=== PATIENT | male | born 1970 | race Caucasian/White ===

== ENCOUNTER → 2016-12-30 | Outpatient (CLI) | payer OTHER ==
[~2016-12-30] MED LIST: CLC6 PO; CPR500 PO; FLM4 PO; IBUP200C14 PO; OXYC-57 PO
== END | disposition home or self-care (01) ==
LOC: C.LABSPEC 17:02
PROVIDERS: ATTEND Nurse Practitioner Adult Health
DX: N20.1 Calculus of ureter (principal)

== ENCOUNTER 2017-02-22 04:51 | Observation (INO) | payer OTHER ==
[2017-02-21 23:08] VITALS: BP 120/85; PULSE 77; TEMP 36.8; O2SAT 96
[~2017-02-22] VITALS: Ht 177.8 cm; Wt 123.0 kg
[2017-02-22] VITALS (7 sets, daily range): BP systolic 120–133; BP diastolic 81–90; PULSE 72–81; TEMP 36.5–37.1; O2SAT 96–98; Ht 177.8 cm; Wt 123.0 kg
[~2017-02-22 04:51] MED LIST changes: -CLC6 PO; -IBUP200C14 PO
[2017-02-22] MEDS ORDERED: SODIUM CHLORIDE 0.9% 1000ML 1,000 ML IV STA (05:09)
[2017-02-22] MEDS ORDERED: ALUMINUM/MAGNESIUM SUSP 30 ML UDC PO STA (05:09)
[2017-02-22 05:23] LABS: BASO % 0.3 %; BASO ABS # 0.04 K/uL (0-0.2); COMPLETE YES; EOS % 1.5 %; HEMATOCRIT 43.6 % (42-52); IG% 0.3 %; LYMPH % 17.5 %; LYMPH ABS # 2.24 K/uL (1.2-3.4); MEAN CELL VOLUME 80.4 fL (80-100); MEAN CORPUSCULAR HEMOGLOBIN 25.5 pg (25-34); MEAN CORPUSCULAR HGB CONC 31.7 g/dl (32-36); MEAN PLATELET VOLUME 9.5 fL (7.4-10.4); MONO % 10.8 %; NEUT % 69.6 %; PLATELET COUNT 291 K/uL (130-400); RED BLOOD COUNT 5.42 M/uL (4.7-6.1); WHITE BLOOD COUNT 12.82 K/uL (4.8-10.8)
[2017-02-22 05:27] LABS: PROTHROMBIN TIME (PATIENT) 10.3 SECONDS (9.0-12.0)
[2017-02-22 05:34] LABS: BLOOD UREA NITROGEN 15 mg/dl (7-18); GLUCOSE 94 mg/dl (70-99)
[2017-02-22 05:35] LABS: ALT/SGPT 39 U/L (12-78); AST/SGOT 25 U/L (15-37); BUN/CREATININE RATIO 15.3 (10-20); CALCIUM 8.3 mg/dl (8.5-10.1); CARBON DIOXIDE 25 mmol/L (21-32); CHLORIDE 108 mmol/L (98-107); POTASSIUM 3.7 mmol/L (3.5-5.1); SODIUM 141 mmol/L (136-145)
[2017-02-22 05:40] LABS: ALKALINE PHOSPHATASE 93 U/L (45-117); CKMB/CK RATIO 0.8 (0-3.0)
--- NOTE | 2017-02-22 05:53 | EMERGENCY ROOM VISIT NOTE ---
History Report prepared by Christina: Inge Serrano Under the Supervision of: Dr. Gentry Armijo D.O. First contact with patient: 05:01 Chief Complaint: CARDIAC ASSESSMENT Stated Complaint: CHEST PRESSURE,NECK, LIGHTHEADED History of Present Illness The patient is a 46 year old male who presents to the Emergency Room with complaints of persistent chest pressure starting 2300 last night. The pain is across his entire chest and up into his neck and jawline. The pain is also going through to his back. When the pain started, he took some aspirin and found relief. He was able to go to sleep. He woke up at 0415 and felt SOB. He feels like his chest pressure worsens with breathing. He has had chest pressure before, but not this severely. He denies any abdominal pain. He notes some water retention in his legs, but states that he is on his feet a lot at work. He did have some alcohol last night. He denies any tobacco use. He had a stress test before in 2001. He is not on any medications daily. His grandfather had a history of heart problems. Source of History: patient Onset: 2300 Position: chest Quality: pressure Timing: other (persistent) Modifying Factors (Worsening): breathing Associated Symptoms: + SOB, No abdominal pain Review of Systems See HPI for pertinent positives & negatives. A total of 10 systems reviewed and were otherwise negative. Past Medical & Surgical Medical Problems: (1) chest pain (2) No Known Active Medical Problems Family History Heart disease Social History Smoking Status: Never Smoker Marital Status: Occupation Status: employed Current/Historical Medications No Active Prescriptions or Reported Meds Allergies Coded Allergies: Prednisone (Verified Allergy, Severe, HYPERACTIVITY/INSOMNIA FOR DAYS, ) Morphine (Unverified Allergy, Intermediate, N/V, 02/22/11) Physical Exam Vital Signs Date Time Temp Pulse Resp B/P (MAP) Pulse Ox O2 Delivery O2 Flow Rate FiO2 02/22/17 07:38 98 Room Air 02/22/17 07:36 98 Nasal Cannula 2.0 02/22/17 07:35 80 20 131/108 98 Room Air 02/22/17 06:31 80 24 147/91 97 Room Air 02/22/17 05:20 76 02/22/17 05:17 76 02/22/17 04:54 36.5 84 18 136/90 99 Room Air Physical Exam GENERAL: Patient is awake, alert, somewhat anxious appearing and uncomfortable. EYES: The conjunctivae are clear. The pupils are round and reactive. EARS, NOSE, MOUTH AND THROAT: The nose is without any evidence of any deformity. Mucous membranes are moist tongue is midline NECK: The neck is nontender and supple. RESPIRATORY: Normal respiratory effort is noted there is no evidence of wheezing rhonchi or rales CARDIOVASCULAR: Regular rate and rhythm noted there no murmurs rubs or gallops normal S1 normal S2 GASTROINTESTINAL: The abdomen is soft. Bowel sounds are present in all quadrants. Abdomen is nontender MUSCULOSKELETAL/EXTREMITIES: There is no evidence of gross deformity full range of motion is noted in the hips and shoulders SKIN: There is no obvious evidence of any rash. There are no petechiae, pallor or cyanosis noted. NEUROLOGIC: Patient is awake alert and oriented x3 Medical Decision & Procedures ER Provider Diagnostic Interpretation: X-ray results as stated below per interpretation by me. Chest X-ray: Cardiomegaly, no definite infiltrate, no free air, no acute disease. Laboratory Results 02/22/17 05:05 Red Blood Count 5.42, Mean Corpuscular Volume 80.4, Mean Corpuscular Hemoglobin 25.5, Mean Corpuscular Hemoglobin Concent 31.7, Mean Platelet Volume 9.5, Neutrophils (%) (Auto) 69.6, Lymphocytes (%) (Auto) 17.5, Monocytes (%) (Auto) 10.8, Eosinophils (%) (Auto) 1.5, Basophils (%) (Auto) 0.3, Neutrophils # (Auto ) 8.92, Lymphocytes # (Auto) 2.24, Monocytes # (Auto) 1.39, Eosinophils # (Auto ) 0.19, Basophils # (Auto) 0.04 02/22/17 05:05 Test 02/22/17 05:05 White Blood Count 12.82 K/uL (4.8-10.8) Red Blood Count 5.42 M/uL (4.7-6.1) Hemoglobin 13.8 g/dL (14.0-18.0) Hematocrit 43.6 % (42-52) Mean Corpuscular Volume 80.4 fL (80-100) Mean Corpuscular Hemoglobin 25.5 pg (25-34) Mean Corpuscular Hemoglobin Concent 31.7 g/dl (32-36) Platelet Count 291 K/uL (130-400) Mean Platelet Volume 9.5 fL (7.4-10.4) Neutrophils (%) (Auto) 69.6 % Lymphocytes (%) (Auto) 17.5 % Monocytes (%) (Auto) 10.8 % Eosinophils (%) (Auto) 1.5 % Basophils (%) (Auto) 0.3 % Neutrophils # (Auto) 8.92 K/uL (1.4-6.5) Lymphocytes # (Auto) 2.24 K/uL (1.2-3.4) Monocytes # (Auto) 1.39 K/uL (0.11-0.59) Eosinophils # (Auto) 0.19 K/uL (0-0.5) Basophils # (Auto) 0.04 K/uL (0-0.2) RDW Standard Deviation 41.3 fL (36.4-46.3) RDW Coefficient of Variation 13.9 % (11.5-14.5) Immature Granulocyte % (Auto) 0.3 % Immature Granulocyte # (Auto) 0.04 K/uL (0.00-0.02) Erythrocyte Sedimentation Rate 20 mm/hr (0-14) Prothrombin Time 10.3 SECONDS (9.0-12.0) Prothromb Time International Ratio 1.0 (0.9-1.1) Activated Partial Thromboplast Time 26.8 SECONDS (21.0-31.0) Partial Thromboplastin Ratio 1.0 D-Dimer 210 ug/L FEU (0-500) Anion Gap 8.0 mmol/L (3-11) Est Creatinine Clear Calc Drug Dose 122.9 ml/min Estimated GFR () 104.9 Estimated GFR (Non- 90.5 BUN/Creatinine Ratio 15.3 (10-20) Calcium Level 8.3 mg/dl (8.5-10.1) Total Bilirubin 0.3 mg/dl (0.2-1) Direct Bilirubin < 0.1 mg/dl (0-0.2) Aspartate Amino Transf (AST/SGOT) 25 U/L (15-37) Alanine Aminotransferase (ALT/SGPT) 39 U/L (12-78) Alkaline Phosphatase 93 U/L (45-117) C-Reactive Protein < 0.29 mg/dl (0-0.29) Total Protein 7.3 gm/dl (6.4-8.2) Albumin 3.7 gm/dl (3.4-5.0) Lipase 131 U/L (73-393) Laboratory results per my review. Medications Administered Medications (Trade) Dose Ordered Sig/Nikko Route Start Time Stop Time Status Last Admin Dose Admin Al Hydroxide/Mg Hydroxide (Maalox Susp) 30 ml NOW STAT PO 02/22/17 05:09 02/22/17 05:10 DC 02/22/17 05:16 30 ML Sodium Chloride 1,000 ml @ 999 mls/hr Q1H1M STAT IV 02/22/17 05:09 02/22/17 06:09 DC 02/22/17 05:17 999 MLS/HR Oxycodone HCl (Roxicodone Immediate Rel Tab) 5 mg NOW STAT PO 02/22/17 07:48 02/22/17 07:49 DC 02/22/17 07:55 5 MG ECG Indication: chest pain, SOB/dyspnea Rate (beats per minute): 76 Rhythm: normal sinus Findings: no ectopy, other (no acute ST segment abnormality) Comparison ECG Date: 09-May-2002 Change: no significant change ED Course 0504: The patient was evaluated in room A2. A complete history and physical examination were performed. 0509: NSS 1000 ml @ 999 mls/hr IV, Maalox Susp 30 ml PO. 0625: Upon reevaluation, the patient is resting comfortably. I discussed results and treatment plan with him. He verbalizes agreement and understanding. The patient will be evaluated for further management and care. 0645: I discussed the patient's case with Dr. Watters, [facility] hospitalist. The patient will be evaluated for further management. Medical Decision Prior records/ancillary studies reviewed. Triage Nursing notes reviewed. The patient's history was concerning for chest pain. Differential diagnosis: Etiologies such as cardiac ischemia, aortic dissection, pulmonary embolism, pneumonia, pneumothorax, musculoskeletal, infections, pericarditis, myocarditis , esophageal rupture, gastrointestinal, as well as others were entertained. Medication Reconciliation: I attest that I have personally reviewed the patient' s current medications list. Patient was found to have a slightly elevated blood pressure due to circumstances. I do not believe that the patient requires hypertension monitoring. The patient is a 46-year-old male who presented to the emergency department for evaluation of right-sided chest pain. The patient describes a pressure which is on the right side of his chest as well as substernally. He states that this is worsened with exertion but also increases with deep inspiration. The pain radiates to the right side of the neck. He does have a family history of coronary artery disease. I discussed patient's laboratory and radiographic studies with him. I also discussed the limitations of the emergency department workup with him. Given the patient's exertional component I do feel this could represent an acute coronary syndrome. I discussed this case with the on-call [facility] hospitalist group. They've agreed to evaluate the patient in the emergency department for further management and disposition. Consults Time Called: 0640 Consulting Physician: Dr. Watters, [facility]ist Returned Call: [phone] I discussed the patient's case with her. The patient will be evaluated for further management. Impression Primary Impression: Exertional chest pain Additional Impression: Pleurisy Scribe Attestation The scribe's documentation has been prepared under my direction and personally reviewed by me in its entirety. I confirm that the note above accurately reflects all work, treatment, procedures, and medical decision making performed by me. Departure Information Dispostion Being Evaluated By Hospitalist Prescriptions No Active Prescriptions or Reported Meds Referrals Yaya Berger III, M.D. (PCP) Patient Instructions [facility] Problem Qualifiers
--- NOTE | 2017-02-22 06:37 | DIAGNOSTIC IMAGING REPORT ---
CHEST ONE VIEW PORTABLE CLINICAL HISTORY: CP dyspnea COMPARISON STUDY: No previous studies for comparison. FINDINGS: Mild cardia megaly. Lungs are clear. Diaphragms are smooth. No focal infiltrate. IMPRESSION: Mild cardia megaly. Otherwise negative study The above report was generated using voice recognition software. It may contain grammatical, syntax or spelling errors. Electronically signed by: Timo Mendoza M.D. 02/22/2017 6:36 AM Dictated Date/Time: 02/22/2017 6:36 AM
[2017-02-22] MEDS ORDERED: OXYCODONE HCL IR 5 MG TAB (IMMEDIATE RELEASE) PO STA (07:48)
[2017-02-22] MEDS ORDERED: NITROGLYCERIN 0.4 MG SL PER TAB CHARGE ONE (08:11)
[2017-02-22] MEDS ORDERED: NITROGLYCERIN 0.4 MG SL PER TAB CHARGE SL PRN (08:30)
[2017-02-22] MEDS ORDERED: NURSING VERBAL MED ORDER ONE (08:30)
[2017-02-22] MEDS ORDERED: ONDANSETRON INJ 2 MG/ML 2 ML VIAL IV PRN (08:30)
[2017-02-22] MEDS ORDERED: ACETAMINOPHEN 325 MG TAB PO PRN (08:30)
[2017-02-22] MEDS ORDERED: HYDROmorphone INJ 0.5 MG/0.5 ML SYR ONE (08:37)
[2017-02-22] MEDS ORDERED: OPTIRAY 320 IV PRN (08:45)
[2017-02-22] MEDS ORDERED: HYDROmorphone INJ 0.5 MG/0.5 ML SYR IV PRN (08:45)
--- NOTE | 2017-02-22 08:52 | History and Physical ---
History & Physical Date & Time of Service: Feb 22, 2017 at 08:36 Chief Complaint: Chest Pressure,Neck, Lightheaded Primary Care Physician: Yaya Berger III, M.D. History of Present Illness Source: patient, spouse, clinic records, hospital records 46 year old male with history of kidney stones presenting with sudden onset chest discomfort starting last evening. Patient follows with Dr. Berger for Primary Care. Patient was at his usual state of health until last evening, around 11 pm, while sitting in the car on the way home from [place], when he suddenly experienced anterior chest discomfort, associated with shortness of breath, radiating to the neck l>r, and mid-back, worse with deep inspiration. When he got home, patient took four tablets of baby Aspirin which relieved the symptoms. He then fell asleep. At around 4 am, patient was awakened by the same symptoms. He then went to the ER for evaluation. At the ER, BP 136/90 HR 84, o2 sats 97%. He was given IV fluids, Oxycodone, Maalox, which did not relieve his symptoms. EKG showed non specific t wave inversions in the inferior leads and v1. Cardiac markers negative. D dimer negative. CXR possible cardiomegaly On my exam, patient was seen with his at bedside. Awake, alert, oriented x 3, in mild discomfort but pleasant, not in respiratory distress. Still has 4-5/10 anterior chest discomfort, worse with deep inspiration. No active nausea/vomiting, dizziness, palpitations, diaphoresis. Denies recent illness, fever/chills, cough, sputum, abdominal pain. Family History Heart disease Social History Smoking Status: Never Smoker Smokeless Tobacco Use: No Alcohol Use: 4x/week 1-2 beers Drug Use: none Marital Status: Housing status: lives with family Occupational Status: employed Immunizations History of Influenza Vaccine: Yes Influenza Vaccine Date: Sep 11, 2009 History of Tetanus Vaccine?: Yes Tetanus Immunization Date: Jun 11, 2008 History of Pneumococcal: Yes Pneumococcal Date: Oct 09, 2006 History of Hepatitis B Vaccine: Yes Hepatitis Immunization Date: Jun 11, 2008 Multi-Drug Resistant Organisms History of MDRO: No Allergies Coded Allergies: Prednisone (Verified Allergy, Severe, HYPERACTIVITY/INSOMNIA FOR DAYS, ) Morphine (Unverified Allergy, Intermediate, N/V, 02/22/11) Home Medications No Active Prescriptions or Reported Meds Review of Systems Constitutional- no fever; no weight loss Eyes- no acute visual changes ENT- no sinus drainage; no pharyngitis Pulmonary- (+) as noted above Cardiac- (+) as noted above GI- no nausea, no vomiting, no diarrhea, no melena, no hematochezia - no dysuria, no hematuria Musculoskeletal- no arthralgias, no myalgias Derm- no rashes, no new skin lesions, no changing skin lesions Hematologic- no unusual bruising, no unusual bleeding Lymphatics- no adenopathy Endocrine- no polyuria or polydipsia; no heat or cold intolerance Neuro- no headaches, no focal neurologic symptoms Psych- no anxiety, no depression Physical Exam Vital Signs Date Time Temp Pulse Resp B/P (MAP) Pulse Ox O2 Delivery O2 Flow Rate FiO2 02/22/17 08:20 73 20 134/90 96 Nasal Cannula 2.0 02/22/17 08:12 74 22 148/95 98 Nasal Cannula 2.0 02/22/17 07:38 98 Room Air 02/22/17 07:36 98 Nasal Cannula 2.0 02/22/17 07:35 80 20 131/108 98 Room Air 02/22/17 06:31 80 24 147/91 97 Room Air 02/22/17 05:20 76 02/22/17 05:17 76 02/22/17 04:54 36.5 84 18 136/90 99 Room Air General Appearance: WD/WN, no apparent distress Head: normocephalic, atraumatic Eyes: normal inspection, EOMI, sclerae normal ENT: normal ENT inspection, hearing grossly normal, pharynx normal Neck: supple, no adenopathy, thyroid normal, no JVD, trachea midline Respiratory/Chest: lungs clear, normal breath sounds, no respiratory distress, no accessory muscle use, + pertinent finding (mild tenderness on the chest wall) Cardiovascular: regular rate, rhythm, no edema, no JVD, no murmur Abdomen/GI: normal bowel sounds, non tender, soft, no organomegaly Back: normal inspection, no CVA tenderness Extremities/Musculoskelatal: normal inspection, no calf tenderness, no pedal edema, normal range of motion Neurologic/Psych: credit operations processor II-XII nml as tested, no motor/sensory deficits, alert, normal mood/affect, oriented x 3 Skin: normal color, warm/dry, no rash Lymphatic: no adenopathy Diagnostics Laboratory Results Results Past 24 Hours Test 02/22/17 05:05 02/22/17 07:50 Range/Units White Blood Count 12.82 4.8-10.8 K/uL Red Blood Count 5.42 4.7-6.1 M/uL Hemoglobin 13.8 14.0-18.0 g/dL Hematocrit 43.6 42-52 % Mean Corpuscular Volume 80.4 80-100 fL Mean Corpuscular Hemoglobin 25.5 25-34 pg Mean Corpuscular Hemoglobin Concent 31.7 32-36 g/dl Platelet Count 291 130-400 K/uL Mean Platelet Volume 9.5 7.4-10.4 fL Neutrophils (%) (Auto) 69.6 % Lymphocytes (%) (Auto) 17.5 % Monocytes (%) (Auto) 10.8 % Eosinophils (%) (Auto) 1.5 % Basophils (%) (Auto) 0.3 % Neutrophils # (Auto) 8.92 1.4-6.5 K/uL Lymphocytes # (Auto) 2.24 1.2-3.4 K/uL Monocytes # (Auto) 1.39 0.11-0.59 K/uL Eosinophils # (Auto) 0.19 0-0.5 K/uL Basophils # (Auto) 0.04 0-0.2 K/uL RDW Standard Deviation 41.3 36.4-46.3 fL RDW Coefficient of Variation 13.9 11.5-14.5 % Immature Granulocyte % (Auto) 0.3 % Immature Granulocyte # (Auto) 0.04 0.00-0.02 K/uL Prothrombin Time 10.3 9.0-12.0 SECONDS Prothromb Time International Ratio 1.0 0.9-1.1 Activated Partial Thromboplast Time 26.8 21.0-31.0 SECONDS Partial Thromboplastin Ratio 1.0 D-Dimer 210 0-500 ug/L FEU Sodium Level 141 136-145 mmol/L Potassium Level 3.7 3.5-5.1 mmol/L Chloride Level 108 98-107 mmol/L Carbon Dioxide Level 25 21-32 mmol/L Anion Gap 8.0 3-11 mmol/L Blood Urea Nitrogen 15 7-18 mg/dl Creatinine 1.00 0.60-1.40 mg/dl Est Creatinine Clear Calc Drug Dose 122.9 ml/min Estimated GFR () 104.9 Estimated GFR (Non- 90.5 BUN/Creatinine Ratio 15.3 10-20 Random Glucose 94 70-99 mg/dl Calcium Level 8.3 8.5-10.1 mg/dl Total Bilirubin 0.3 0.2-1 mg/dl Direct Bilirubin < 0.1 0-0.2 mg/dl Aspartate Amino Transf (AST/SGOT) 25 15-37 U/L Alanine Aminotransferase (ALT/SGPT) 39 12-78 U/L Alkaline Phosphatase 93 45-117 U/L Total Creatine Kinase 405 39-308 U/L Creatine Kinase MB 3.4 0.5-3.6 ng/ml Creatine Kinase MB Ratio 0.8 0-3.0 Troponin I < 0.015 < 0.015 0-0.045 ng/ml Total Protein 7.3 6.4-8.2 gm/dl Albumin 3.7 3.4-5.0 gm/dl Lipase 131 73-393 U/L Diagnostic Radiology CHEST ONE VIEW PORTABLE CLINICAL HISTORY: CP dyspnea COMPARISON STUDY: No previous studies for comparison. FINDINGS: Mild cardia megaly. Lungs are clear. Diaphragms are smooth. No focal infiltrate. IMPRESSION: Mild cardia megaly. Otherwise negative study EKG HR 70, sinus rhythm, non specific t wave depressions in the inferior leads Impression Assessment and Plan 46 year old male with history of kidney stones presenting with sudden onset chest discomfort starting last evening. CHEST PAIN R/O ACS already took Aspirin 81mg po x 4 tabs at 11pm check serial cardiac markers echo did not resolve with Nitrostat x 2, BP now at systolic 112 from 140s, will hold off on nitro Cardiology consulted R/O PERICARDITIS check ESR, CRP Echo may need high dose Aspirin + Colchicine prn Dilaudid for now R/O DISSECTION, PE D dimer normal but patient presents with symptoms suggestive of above check CT Angio ALCOHOL USE drink 1-2 beer/ 4x a week last drink last night Protonix daily may need Gabapentin protocol, Alcohol Withdrawal protocol DVT prophylaxis SCDs for now til dissection ruled out FULL CODE Dispo pending anticipate d/c home when medically stable Advanced Directives Existing Living Will: No Existing Power of Channel Man: No VTE Prophylaxis VTE Risk Assessment Done? Y/N: Yes Risk Level: Moderate Given or contraindicated: SCD's
--- NOTE | 2017-02-22 09:36 | DIAGNOSTIC IMAGING REPORT ---
Study: CT chest angiogram HISTORY:: Chest pain FINDINGS: The thoracic aorta is normal in course and caliber. Pulmonary vasculature enhances appropriately. The lungs are considered clear. IMPRESSION: Negative study Electronically signed by: Timo Mendoza M.D. 02/22/2017 9:34 AM Dictated Date/Time: 02/22/2017 9:30 AM
[2017-02-22] MEDS ORDERED: PANTOprazole INJ 40 MG in SYRINGE 0 ML IV ONE (10:30)
[2017-02-22] MEDS: SODIUM CHLORIDE 0.9% 1000ML 1,000 ML IV SCH ×2 (11:26→20:06)
[2017-02-22 11:46] LABS: CKMB/CK RATIO 0.9 (0-3.0)
[2017-02-22] MEDS ORDERED: IV FLUIDS COMPLETED PRN (13:30)
--- NOTE | 2017-02-22 14:00 | ECHOCARDIOGRAM REPORT ---
*NOTICE TO RECEIVING REPUBLICAN AGENCY This information is strictly Confidential and protected under [place] law. [place] law prohibits you from making any further disclosure of this information unless further disclosure is expressly permitted by the written consent of the person to whom it pertains or is authorized by law. A general authorization for the release of medical or other information is not sufficient for this purpose. Hospital accepts no responsibility if the information is made available to any other person, INCLUDING THE PATIENT. Interpretation Summary * Name: KATTY BAJWA Study Date: 02/22/2017 10:28 AM BP: 112/73 mmHg * Patient Location: C.2E\S\E208\S\1 HR: 75 * : 1970 (M/d/yyyy) Gender: Male Height: 70 in * Age: 46 yrs Ethnicity: CA Weight: 271 lb * Ordering Physician: Dave Chávez * Referring Physician: Self, Referred * Performed By: Jenifer Pepe RDCS * * Reason For Study: Chest pain * BSA: 2.4 m2 * The study was technically adequate. * There is no comparison study available. * -- Conclusions -- * Left ventricular systolic function is normal. * Ejection Fraction = 60-65%. * The left ventricular wall motion is normal. * Pulse wave TDI of the anterior and posterior mitral annulas demonstrates normal LV relaxation * The right ventricle is normal size. * The right ventricular systolic function is normal as assessed by tricuspid annular plane systolic excursion (TAPSE) (normal >1.5 cm). * There is no pericardial effusion. * No significant valvular pathology. Procedure Details * A complete two-dimensional transthoracic echocardiogram was performed (2D, M-mode, Doppler and color flow Doppler). Left Ventricle * The left ventricle is normal in size. * There is no thrombus. * There is normal left ventricular wall thickness. * Ejection Fraction = 60-65%. * Left ventricular systolic function is normal. * The left ventricular wall motion is normal. Right Ventricle * The right ventricle is normal size. * The right ventricular systolic function is normal as assessed by tricuspid annular plane systolic excursion (TAPSE) (normal >1.5 cm). Atria * The left atrial size is normal. * Right atrial size is normal. * There is no evidence of atrial septal defect, but resolution does not allow assessment for a patent foramen ovale. Mitral Valve * The mitral valve is normal. * There is no mitral valve stenosis. * Significant mitral regurgitation is absent. Tricuspid Valve * The tricuspid valve is normal. * There is no tricuspid stenosis. * There is trace tricuspid regurgitation. Aortic Valve * The aortic valve is trileaflet. * The aortic valve opens well. * Aortic stenosis is absent. * There is no significant aortic regurgitation. Pulmonic Valve * The pulmonary valve is not well seen, but the Doppler examination is normal without significant regurgitation or stenosis. Great Vessels * The aortic root and proximal ascending aorta are normal sized. Pericardium/Pleural * There is no pericardial effusion. Great Vessels * Normal inferior vena cava diameter and respiratory variation suggests normal central venous pressure. Left Ventricular Diastolic Function * Pulse wave TDI of the anterior and posterior mitral annulas demonstrates normal LV relaxation MMode 2D Measurements and Calculations IVSd 0.94 cm LVIDd 4.5 cm LVIDs 2.9 cm LVPWd 1.0 cm IVS/LVPW 0.92 FS 35.2 % EDV(Teich) 93.2 ml ESV(Teich) 32.9 ml EF(Teich) 64.7 % EDV(cubed) 92.1 ml ESV(cubed) 25.1 ml EF(cubed) 72.8 % LV mass(C)d 149.1 grams LV mass(C)dI 62.8 grams/m\S\2 SV(Teich) 60.3 ml SI(Teich) 25.4 ml/m\S\2 SV(cubed) 67.1 ml SI(cubed) 28.2 ml/m\S\2 Ao root diam 3.3 cm Ao root area 8.7 cm\S\2 ACS 2.2 cm LA dimension 3.4 cm asc Aorta Diam 3.7 cm LA/Ao 1.0 LVOT diam 2.0 cm LVOT area 3.1 cm\S\2 LVAd ap4 33.5 cm\S\2 LVLd ap4 8.0 cm EDV(MOD-sp4) 116.2 ml EDV(sp4-el) 119.2 ml LVAs ap4 17.7 cm\S\2 LVLs ap4 6.0 cm ESV(MOD-sp4) 45.6 ml ESV(sp4-el) 44.5 ml EF(MOD-sp4) 60.8 % EF(sp4-el) 62.7 % LVAd ap2 26.8 cm\S\2 LVLd ap2 8.0 cm EDV(MOD-sp2) 74.4 ml EDV(sp2-el) 75.9 ml LVAs ap2 15.4 cm\S\2 LVLs ap2 7.0 cm ESV(MOD-sp2) 28.8 ml ESV(sp2-el) 29.0 ml EF(MOD-sp2) 61.3 % EF(sp2-el) 61.8 % LVLd %diff 0.21 % EDV(MOD-bp) 92.8 ml LVLs %diff 13.7 % ESV(MOD-bp) 38.9 ml EF(MOD-bp) 58.0 % SV(MOD-sp4) 70.7 ml SI(MOD-sp4) 29.7 ml/m\S\2 SV(MOD-sp2) 45.7 ml SI(MOD-sp2) 19.2 ml/m\S\2 SV(MOD-bp) 53.9 ml SI(MOD-bp) 22.7 ml/m\S\2 SV(sp4-el) 74.7 ml SI(sp4-el) 31.4 ml/m\S\2 SV(sp2-el) 46.9 ml SI(sp2-el) 19.8 ml/m\S\2 Doppler Measurements and Calculations MV E max sammie 79.1 cm/sec MV A max sammie 69.4 cm/sec MV E/A 1.1 MV dec time 0.17 sec Ao V2 max 125.1 cm/sec Ao max PG 6.3 mmHg Ao max PG (full) 0.84 mmHg TEE(V,A) 2.9 cm\S\2 ETE(V,D) 2.9 cm\S\2 LV V1 max PG 5.4 mmHg LV V1 max 116.4 cm/sec PA V2 max 108.6 cm/sec PA max PG 4.7 mmHg PA acc slope 392.1 cm/sec\S\2 PA acc time 0.14 sec PA pr(Accel) 17.2 mmHg
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
[2017-02-22] MEDS: KETOROLAC TROMETHAMINE 30 MG/ML VIAL IV PRN ×2 (14:47→20:55)
[2017-02-22 17:44] LABS: CKMB/CK RATIO 0.6 (0-3.0)
[2017-02-22] MEDS: COLCHICINE 0.6 MG TAB PO SCH (19:21)
[2017-02-23] VITALS (8 sets, daily range): BP systolic 138–144; BP diastolic 91–95; PULSE 77–85; TEMP 36.7; O2SAT 95–97
[2017-02-23 07:41] LABS: BASO % 0.6 %; BASO ABS # 0.04 K/uL (0-0.2); COMPLETE YES; EOS % 2.4 %; HEMATOCRIT 38.1 % (42-52); IG% 0.2 %; LYMPH % 26.4 %; LYMPH ABS # 1.65 K/uL (1.2-3.4); MEAN CELL VOLUME 80.5 fL (80-100); MEAN CORPUSCULAR HEMOGLOBIN 26.8 pg (25-34); MEAN CORPUSCULAR HGB CONC 33.3 g/dl (32-36); MEAN PLATELET VOLUME 9.6 fL (7.4-10.4); MONO % 8.3 %; NEUT % 62.1 %; PLATELET COUNT 236 K/uL (130-400); RED BLOOD COUNT 4.73 M/uL (4.7-6.1); WHITE BLOOD COUNT 6.26 K/uL (4.8-10.8)
[2017-02-23 08:06] LABS: BUN/CREATININE RATIO 13.5 (10-20); CREATININE 0.83 mg/dl (0.60-1.40); POTASSIUM 3.8 mmol/L (3.5-5.1)
[2017-02-23] MEDS: COLCHICINE 0.6 MG TAB PO SCH (08:30)
[2017-02-23] MEDS: KETOROLAC TROMETHAMINE 30 MG/ML VIAL IV PRN (08:30)
[2017-02-23] MEDS: SODIUM CHLORIDE 0.9% 1000ML 1,000 ML IV SCH (08:30)
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
[2017-02-23] MEDS ORDERED: PANTOprazole INJ 40 MG in SYRINGE 0 ML IV SCH (11:00)
--- NOTE | 2017-02-23 11:44 | Progress Note ---
Medicine Progress Note Date & Time of Visit: Feb 23, 2017 at 11:35. Subjective patient seen resting in bed, comfortable states he feels much better today chest pain is minimal , can take deep breaths now no cough, sputum, fever, headache, dizziness, nausea, abdominal pain no other symptoms states he is ready and would like to be discharged today Objective Last 8 Hrs Date Time Temp Pulse Resp B/P (MAP) Pulse Ox O2 Delivery O2 Flow Rate FiO2 02/23/17 08:00 97 Room Air 02/23/17 06:56 36.7 85 18 144/91 (108) 97 Room Air 02/23/17 04:05 96 Room Air 02/23/17 03:40 36.7 77 16 138/91 (107) 97 Room Air Physical Exam: General- oriented x 3, not in distress, speaks in sentences with no effort Head- atraumatic Eyes- EOMI, anicteric Neck- supple, no JVD, no adenopathy Lungs- clear breath sounds bilaterally, no rales/wheezes Heart- regular rhythm; no murmur, normal rate Abdomen- normal bowel sounds, soft, nontender Extremities- no pretibial edema, no calf tenderness Neuro- alert, oriented x 3; no gross focal deficits Skin- warm & dry Laboratory Results: Last 24 Hours Test 02/22/17 16:53 02/23/17 07:21 Total Creatine Kinase 333 U/L Creatine Kinase MB 2.0 ng/ml Creatine Kinase MB Ratio 0.6 Troponin I < 0.015 ng/ml White Blood Count 6.26 K/uL Red Blood Count 4.73 M/uL Hemoglobin 12.7 g/dL Hematocrit 38.1 % Mean Corpuscular Volume 80.5 fL Mean Corpuscular Hemoglobin 26.8 pg Mean Corpuscular Hemoglobin Concent 33.3 g/dl Platelet Count 236 K/uL Mean Platelet Volume 9.6 fL Neutrophils (%) (Auto) 62.1 % Lymphocytes (%) (Auto) 26.4 % Monocytes (%) (Auto) 8.3 % Eosinophils (%) (Auto) 2.4 % Basophils (%) (Auto) 0.6 % Neutrophils # (Auto) 3.89 K/uL Lymphocytes # (Auto) 1.65 K/uL Monocytes # (Auto) 0.52 K/uL Eosinophils # (Auto) 0.15 K/uL Basophils # (Auto) 0.04 K/uL RDW Standard Deviation 39.9 fL RDW Coefficient of Variation 13.4 % Immature Granulocyte % (Auto) 0.2 % Immature Granulocyte # (Auto) 0.01 K/uL Sodium Level 140 mmol/L Potassium Level 3.8 mmol/L Chloride Level 108 mmol/L Carbon Dioxide Level 25 mmol/L Anion Gap 7.0 mmol/L Blood Urea Nitrogen 11 mg/dl Creatinine 0.83 mg/dl Est Creatinine Clear Calc Drug Dose 147.8 ml/min Estimated GFR () 123.2 Estimated GFR (Non- 106.3 BUN/Creatinine Ratio 13.5 Random Glucose 89 mg/dl Calcium Level 8.0 mg/dl Assessment & Plan 46 year old male with history of kidney stones presenting with sudden onset chest discomfort starting last evening. CHEST PAIN, LIKELY PLEURISY -- Ct Chest: no dissection, lungs clear D dimer negative -- improved immediately with Toradol IV and Colchicine -- discharge on Ibuprofen 600-800mg TID, Colchicine 0.6mg BID x at least 2 weeks, extend to complete 4 weeks as needed -- ff up with PCP this week POSSIBLE PERICARDITIS? -- ESR 20, CRP negative -- Echo: no pericardial effusion -- no definitive evidence for pericarditis -- will be on ibuprofen and colchicine ACUTE CORONARY SYNDROME RULED OUT -- cardiac markers negative EKG non specific t wave changes in inferior leads -- echo: unrevealing -- evaluated by [facility] Dr. Mclaughlin no further interventions at this time ALCOHOL USE drink 1-2 beer/ 4x a week no signs of withdrawal Dispo d/c home ff up with PCP this week Current Inpatient Medications: Current Inpatient Medications Medications (Trade) Dose Ordered Sig/Nikko Route Start Time Stop Time Status Last Admin Dose Admin Sodium Chloride 1,000 ml @ 125 mls/hr Q8H IV 02/22/17 08:24 03/24/17 08:23 02/23/17 08:30 125 MLS/HR Acetaminophen (Tylenol Tab) 650 mg Q4H PRN PO 02/22/17 08:30 03/24/17 08:29 Ondansetron HCl (Zofran Inj) 4 mg Q6H PRN IV 02/22/17 08:30 03/24/17 08:29 Nitroglycerin (Nitrostat Tab) 0.4 mg UD PRN SL 02/22/17 08:30 03/24/17 08:29 Hydromorphone HCl (Dilaudid Inj) 0.5 mg Q4H PRN IV 02/22/17 08:45 03/08/17 08:44 Ioversol (Optiray 320) 111 ml UD PRN IV 02/22/17 08:45 02/26/17 08:44 Pantoprazole Sodium 40 mg/ Syringe 10 ml @ 5 mls/min DAILY@11 IV 02/23/17 11:00 03/25/17 10:59 02/23/17 11:00 5 MLS/MIN Miscellaneous (Iv Fluids Completed) 1 ea PRN PRN N/A 02/22/17 13:30 02/22/18 13:29 Ketorolac Tromethamine (Toradol Inj) 30 mg Q6H PRN IV 02/22/17 14:30 02/27/17 14:29 02/23/17 08:30 30 MG Colchicine (Colchicine Tab) 0.6 mg BID PO 02/22/17 21:00 03/24/17 20:59 02/23/17 08:30 0.6 MG
[2017-02-23] MEDS ORDERED: IBUP200C14 PO ×2 (11:48→11:49)
[2017-02-23] MEDS ORDERED: CLC6 PO (11:48)
--- NOTE | 2017-02-23 11:56 | Discharge Instructions ---
Discharge Instructions Date of Service Feb 23, 2017. Admission Reason for Admission: Chest Pain Discharge Discharge Diagnosis / Problem: Chest pain, likely Pleurisy Discharge Goals Goal(s): Diagnostic testing, Therapeutic intervention Activity Recommendations Activity Limitations: as noted below (No heavy exertion until re-evaluated by Primary Care Physician) Lifting Limitations: until after follow-up appointment Exercise/Sports Limitations: until after follow-up appointment . Instructions / Follow-Up Instructions / Follow-Up PLEASE REVIEW YOUR MEDICATION LIST AND FOLLOW INSTRUCTIONS CAREFULLY. TAKE COLCHICINE FOR 2 WEEKS. DISCUSS WITH YOUR PRIMARY CARE PHYSICIAN IF YOU NEED TO TAKE IT LONGER THAN THAT. AVOID GRAPEJUICE WHILE TAKING COLCHICINE. ALWAYS TAKE IBUPROFEN WITH FOOD. CALL YOUR PRIMARY CARE PHYSICIAN OR RETURN TO ER IMMEDIATELY IF WITH INCREASING CHEST PAIN, SHORTNESS OF BREATH, COUGH, SPUTUM PRODUCTIONS, FEVER/CHILLS. FOLLOW UP WITH DR. PAPLE (ASSOCIATE OF DR. KOCH) ON SATURDAY FEBRUARY 25, 2017 AT 11:05AM. Current Hospital Diet Patient's current hospital diet: AHA Diet (Heart Healthy) Discharge Diet Recommended Diet: AHA Diet (Heart Healthy) Pending Studies Studies pending at discharge: no Medical Emergencies . Who to Call and When: Medical Emergencies: If at any time you feel your situation is an emergency, please call 911 immediately. . Non-Emergent Contact Non-Emergency issues call your: Primary Care Provider Call Non-Emergent contact if: you have a fever, your pain is not controlled, your pain is worsening, you have any medication questions . . "Provider Documentation" section prepared by Dave Chávez. . VTE Core Measure Inpt VTE Proph given/why not?: SCD's
--- NOTE | 2017-02-23 12:03 | Discharge Summary ---
Discharge Summary Date of Service Feb 23, 2017. Discharge Summary Admission Date: Feb 22, 2017 at 07:53 Discharge Date: Feb 23, 2017 Principal Diagnosis: CHEST PAIN, LIKELY PLEURISY Secondary Diagnoses/Problems: Please refer to hospital course below for further details. Procedures: Study: CT chest angiogram HISTORY:: Chest pain FINDINGS: The thoracic aorta is normal in course and caliber. Pulmonary vasculature enhances appropriately. The lungs are considered clear. IMPRESSION: Negative study CHEST ONE VIEW PORTABLE CLINICAL HISTORY: CP dyspnea COMPARISON STUDY: No previous studies for comparison. FINDINGS: Mild cardia megaly. Lungs are clear. Diaphragms are smooth. No focal infiltrate. IMPRESSION: Mild cardia megaly. Otherwise negative study Echo: -- Conclusions -- * Left ventricular systolic function is normal. * Ejection Fraction = 60-65%. * The left ventricular wall motion is normal. * Pulse wave TDI of the anterior and posterior mitral annulas demonstrates normal LV relaxation * The right ventricle is normal size. * The right ventricular systolic function is normal as assessed by tricuspid annular plane systolic excursion (TAPSE) (normal >1.5 cm). * There is no pericardial effusion. * No significant valvular pathology. Consultations: Copier Technician Dr. Mclaughlin Pending Studies/Follow-Up: Please refer to hospital course below. Medication Reconciliation New Medications: Ibuprofen (Advil) 200 Mg Cap 3-4 TABS PO UD PRN for Pain for 14 Days take 3-4 tabs every 6 hours up to three times a day as needed for pain; always take with food Colchicine (Colcrys) 0.6 Mg Tab 0.6 MG PO BID for 14 Days, #28 TAB 2 Refills Admission Information HPI (per Admitting provider): 46 year old male with history of kidney stones presenting with sudden onset chest discomfort starting last evening. Patient follows with Dr. Koch for Primary Care. Patient was at his usual state of health until last evening, around 11 pm, while sitting in the car on the way [place] from [place], when he suddenly experienced anterior chest discomfort, associated with shortness of breath, radiating to the neck l>r, and mid-back, worse with deep inspiration. When he got home, patient took four tablets of baby Aspirin which relieved the symptoms. He then fell asleep. At around 4 am, patient was awakened by the same symptoms. He then went to the ER for evaluation. At the ER, BP 136/90 HR 84, o2 sats 97%. He was given IV fluids, Oxycodone, Maalox, which did not relieve his symptoms. EKG showed non specific t wave inversions in the inferior leads and v1. Cardiac markers negative. D dimer negative. CXR possible cardiomegaly On my exam, patient was seen with his at bedside. Awake, alert, oriented x 3, in mild discomfort but pleasant, not in respiratory distress. Still has 4-5/10 anterior chest discomfort, worse with deep inspiration. No active nausea/vomiting, dizziness, palpitations, diaphoresis. Denies recent illness, fever/chills, cough, sputum, abdominal pain. Physical Exam (per Admitting): General Appearance: WD/WN, no apparent distress Head: normocephalic, atraumatic Eyes: normal inspection, EOMI, sclerae normal ENT: normal ENT inspection, hearing grossly normal, pharynx normal Neck: supple, no adenopathy, thyroid normal, no JVD, trachea midline Respiratory/Chest: lungs clear, normal breath sounds, no respiratory distress, no accessory muscle use, + pertinent finding (mild tenderness on the chest wall) Cardiovascular: regular rate, rhythm, no edema, no JVD, no murmur Abdomen/GI: normal bowel sounds, non tender, soft, no organomegaly Back: normal inspection, no CVA tenderness Extremities/Musculoskelatal: normal inspection, no calf tenderness, no pedal edema, normal range of motion Neurologic/Psych: 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 CHEST PAIN, LIKELY PLEURISY -- Ct Chest: no dissection, lungs clear D dimer negative -- improved immediately with Toradol IV and Colchicine -- discharge on Ibuprofen 600-800mg TID, Colchicine 0.6mg BID x at least 2 weeks, extend to complete 4 weeks as needed -- ff up with PCP this week POSSIBLE PERICARDITIS? -- ESR 20, CRP negative -- Echo: no pericardial effusion -- no definitive evidence for pericarditis -- will be on ibuprofen and colchicine ACUTE CORONARY SYNDROME RULED OUT -- cardiac markers negative EKG non specific t wave changes in inferior leads -- echo: unrevealing -- evaluated by Copier Technician Dr. Mclaughlin no further interventions at this time ALCOHOL USE drinks 1-2 beer/ 4x a week no signs of withdrawal Dispo d/c home ff up with PCP this week Total time spent on discharge = 30 minutes This includes examination of the patient, discharge planning, medication reconciliation, and communication with other providers. Discharge Instructions Discharge Instructions Date of Service Feb 23, 2017. Admission Reason for Admission: Chest Pain Discharge Discharge Diagnosis / Problem: Chest pain, likely Pleurisy Discharge Goals Goal(s): Diagnostic testing, Therapeutic intervention Activity Recommendations Activity Limitations: as noted below (No heavy exertion until re-evaluated by Primary Care Physician) Lifting Limitations: until after follow-up appointment Exercise/Sports Limitations: until after follow-up appointment . Instructions / Follow-Up Instructions / Follow-Up PLEASE REVIEW YOUR MEDICATION LIST AND FOLLOW INSTRUCTIONS CAREFULLY. TAKE COLCHICINE FOR 2 WEEKS. DISCUSS WITH YOUR PRIMARY CARE PHYSICIAN IF YOU NEED TO TAKE IT LONGER THAN THAT. AVOID GRAPEJUICE WHILE TAKING COLCHICINE. ALWAYS TAKE IBUPROFEN WITH FOOD. CALL YOUR PRIMARY CARE PHYSICIAN OR RETURN TO ER IMMEDIATELY IF WITH INCREASING CHEST PAIN, SHORTNESS OF BREATH, COUGH, SPUTUM PRODUCTIONS, FEVER/CHILLS. FOLLOW UP WITH DR. APPLE (ASSOCIATE OF DR. KOCH) ON SATURDAY FEBRUARY 25, 2017 AT 11:05AM. Current Hospital Diet Patient's current hospital diet: AHA Diet (Heart Healthy) Discharge Diet Recommended Diet: AHA Diet (Heart Healthy) Pending Studies Studies pending at discharge: no Medical Emergencies . Who to Call and When: Medical Emergencies: If at any time you feel your situation is an emergency, please call 911 immediately. . Non-Emergent Contact Non-Emergency issues call your: Primary Care Provider Call Non-Emergent contact if: you have a fever, your pain is not controlled, your pain is worsening, you have any medication questions . . "Provider Documentation" section prepared by Dave Chávez. . VTE Core Measure Inpt VTE Proph given/why not?: SCD's
== END 2017-02-23 13:01 | disposition home or self-care (01) ==
LOC: C.EDB 04:52 → C.2E 07:53 → ENRESERV 08:13
PROVIDERS: ADMIT Internal Medicine; ATTEND Internal Medicine
DX: R07.89 Other chest pain (principal); Z82.49 Family history of ischemic heart disease and other diseases of the circulatory system; Z72.89 Other problems related to lifestyle